=== PATIENT | female | born 1965 | race African-American/Black ===

== ENCOUNTER 2019-05-02 00:15 | Inpatient (IN) | payer OTHER ==
[~2019-05-02] VITALS: Ht 149.9 cm; Wt 60.1 kg
[~2019-05-02 00:15] MED LIST: DICLOFENAC; HCTZ PO; OMEPRAZOLE PO; PLENDIL PO
[2019-05-02] MEDS ORDERED: MORPHINE SULFATE 4 MG/ML CPJ (NOT FOR IM USE) IV STA (01:36)
[2019-05-02] MEDS ORDERED: ONDANSETRON HCL 4MG/2ML INJ IV STA (01:36)
[2019-05-02] MEDS ORDERED: SODIUM CHLORIDE 0.9% 1,000 ML IV ONE (01:36)
[2019-05-02 02:03] LABS: BASOPHILS % 0.8 % (0.0-2.0); EOSINOPHILS % 2.6 % (0.0-5.0); HEMATOCRIT. 35.9 % (36.0-48.0); HEMOGLOBIN. 12.1 g/dL (12.0-16.0); LYMPHOCYTES % 27.8 % (20.0-50.0); MEAN CORPUSCULAR HEMOGLOBIN 28.7 pg (28.0-32.0); MEAN CORPUSCULAR VOLUME 85.4 fL (81.0-99.0); MEAN PLATELET VOLUME 7.4 fl (7.4-10.4); MONOCYTES % 10.1 % (2.0-8.0); NEUTROPHILS % 58.7 % (40.0-76.0); PLATELET 322 x1000/uL (130-400); RED CELL DISTRIBUTION WIDTH 13.9 % (11.6-14.6)
[2019-05-02 02:07] LABS: CHLORIDE 102 mEq/L (98-107)
[2019-05-02] MEDS ORDERED: POTASSIUM CHLORIDE 20MEQ TABLET SR PO SCH (03:35)
[2019-05-02] MEDS ORDERED: NITROGLYCERIN OINT 1GM/INCH UDPKT TD ONE (05:00)
[2019-05-02] MEDS ORDERED: ASPIRIN 81MG TABLET PO ONE (05:00)
[2019-05-02] MEDS ORDERED: MAGNESIUM/ALUMINUM HYDROXIDE/SIMETHICONE 30ML UDC PO PRN (08:45)
[2019-05-02] MEDS ORDERED: DIPHENHYDRAMINE 50MG/ML VIAL IV PRN (08:45)
[2019-05-02] MEDS ORDERED: CLONIDINE 0.1MG TABLET PO PRN (08:45)
[2019-05-02] MEDS ORDERED: ACETAMINOPHEN 325MG TABLET PO PRN (08:45)
[2019-05-02] MEDS ORDERED: DOCUSATE SODIUM 100MG CAPSULE PO PRN (08:45)
[2019-05-02] MEDS ORDERED: IPRATROPIUM/ALBUTEROL 0.5-3(2.5)MG/3ML NEB HHN PRN (08:45)
[2019-05-02] MEDS ORDERED: ONDANSETRON HCL 4MG/2ML INJ IV PRN (08:45)
[2019-05-02 08:59] LABS: PHOSPHORUS 3.4 mg/dL (2.5-4.9)
[2019-05-02 09:00] VITALS: BP 121/69
[2019-05-02] MEDS: HYDROCODONE/ACETAMINOPHEN 5/325MG TABLET PO PRN ×3 (09:41→23:50)
[2019-05-02] MEDS: ENOXAPARIN 40MG/0.4ML SYR SUBCUT SCH (09:43)
[2019-05-02 12:00] VITALS: BP 100/72
[2019-05-02] MEDS ORDERED: HYDR-4009 PO (14:50)
[2019-05-02] MEDS ORDERED: CARI250T PO (14:50)
[2019-05-02] MEDS ORDERED: GABA800T97 PO (14:50)
[2019-05-02 16:00] VITALS: BP 114/64
[2019-05-02] MEDS ORDERED: OMEP10CA5 PO (17:01)
[2019-05-02] MEDS ORDERED: HYDR25TA PO (17:01)
[2019-05-02 18:54] LABS: METHADONE URINE SCREEN NEGATIVE (NEGATIVE); OPIATES URINE SCREEN PRESUMTIVE POSITIVE (NEGATIVE)
[2019-05-02 18:55] LABS: *AMPHETAMINES SCREEN URINE NEGATIVE (NEGATIVE); *BARBITURATES SCREEN URINE NEGATIVE (NEGATIVE); *BENZODIAZEPINES SCREEN URINE NEGATIVE (NEGATIVE); CANNABINOID URINE SCREEN NEGATIVE (NEGATIVE); PHENCYCLIDINE URINE SCREEN NEGATIVE (NEGATIVE)
[2019-05-02 18:57] LABS: *COCAINE SCREEN URINE NEGATIVE (NEGATIVE)
[2019-05-02 20:00] VITALS: BP 116/70
[2019-05-03] VITALS: BP 145/96
[2019-05-03] MEDS: GUAIFENESIN 200MG/10ML SUGAR FREE UDC PO PRN ×2 (00:07→08:32)
[2019-05-03 04:00] VITALS: BP 125/80
[2019-05-03 06:34] LABS: CHLORIDE 110 mEq/L (98-107)
[2019-05-03 06:42] LABS: BASOPHILS % 0.4 % (0.0-2.0); EOSINOPHILS % 3.8 % (0.0-5.0); HEMATOCRIT. 36.7 % (36.0-48.0); HEMOGLOBIN. 12.2 g/dL (12.0-16.0); LYMPHOCYTES % 48.2 % (20.0-50.0); MEAN CORPUSCULAR HEMOGLOBIN 28.8 pg (28.0-32.0); MEAN CORPUSCULAR VOLUME 86.6 fL (81.0-99.0); MONOCYTES % 11.3 % (2.0-8.0); NEUTROPHILS % 36.3 % (40.0-76.0); PLATELET 312 x1000/uL (130-400); RED BLOOD CELL COUNT 4.24 mill/uL (4.2-5.4); RED CELL DISTRIBUTION WIDTH 13.8 % (11.6-14.6)
[2019-05-03 06:45] LABS: LDL CHOLESTEROL 86 mg/dL (5-100)
[2019-05-03 06:47] LABS: HDL CHOLESTEROL 39 mg/dL (40-59)
[2019-05-03] MEDS: HYDROCODONE/ACETAMINOPHEN 5/325MG TABLET PO PRN (07:37)
[2019-05-03 08:00] VITALS: BP 121/60
[2019-05-03] MEDS: ENOXAPARIN 40MG/0.4ML SYR SUBCUT SCH (08:32)
[2019-05-03 12:00] VITALS: BP 121/77
[2019-05-03 12:16] VITALS: BP 121/77
== END 2019-05-03 14:55 | disposition home or self-care (01) | DRG 203 ==
LOC: ER 00:15 → 5WST 05:23 → EDBEDREQTM 05:30 → EDBEDREQ 05:30 → ENRESERV 07:30
PROVIDERS: ADMIT Internal Medicine; ATTEND Internal Medicine
DX: M94.0 Chondrocostal junction syndrome [Tietze] (principal); E87.6 Hypokalemia; I10 Essential (primary) hypertension; Z88.0 Allergy status to penicillin; J44.9 Chronic obstructive pulmonary disease, unspecified; Z82.49 Family history of ischemic heart disease and other diseases of the circulatory system; Z87.01 Personal history of pneumonia (recurrent); Z88.9 Allergy status to unspecified drugs, medicaments and biological substances; Z90.49 Acquired absence of other specified parts of digestive tract; Z98.891 History of uterine scar from previous surgery
CPT/HCPCS: 36415; 71045; 80061; 80305; 83605; 83735; 83880; 84100; 84132; 84443; 84484; 85379; 87804; 93005; 93306; 93970; 94640; 96372; 96374; 96375; 99285; J1650; J2270; J2405; J7030; J7620

== ENCOUNTER 2021-01-16 13:41 | Emergency (ER) | payer OTHER ==
[~2021-01-16] VITALS: Ht 165.1 cm; Wt 70.0 kg
[~2021-01-16 13:41] MED LIST changes: +CARI250T PO; -DICLOFENAC; +GABA800T97 PO; -HCTZ PO; +HYDR-4009 PO; +HYDR25TA PO; +OMEP10CA5 PO; -OMEPRAZOLE PO; -PLENDIL PO
[2021-01-16] MEDS ORDERED: ONDANSETRON HCL 4MG/2ML INJ IV STA (14:24)
[2021-01-16] MEDS ORDERED: FAMOTIDINE 20MG/2ML VIAL IV STA (14:24)
[2021-01-16] MEDS ORDERED: KETOROLAC 30MG/ML VIAL IV STA (14:24)
[2021-01-16] MEDS ORDERED: SODIUM CHLORIDE 0.9% 1,000 ML IV ONE (14:30)
[2021-01-16 14:56] LABS: BASOPHILS % 0.5 % (0.0-2.0); HEMATOCRIT. 34.9 % (36.0-48.0); HEMOGLOBIN. 11.7 g/dL (12.0-16.0); LYMPHOCYTES % 28.6 % (20.0-50.0); MEAN CORPUSCULAR HEMOGLOBIN 26.8 pg (28.0-32.0); MEAN CORPUSCULAR VOLUME 79.7 fL (81.0-99.0); MEAN PLATELET VOLUME 7.3 fl (7.4-10.4); MONOCYTES % 9.7 % (2.0-8.0); NEUTROPHILS % 61.2 % (40.0-76.0); PLATELET 382 x1000/uL (130-400); RED BLOOD CELL COUNT 4.38 mill/uL (4.2-5.4); RED CELL DISTRIBUTION WIDTH 16.1 % (11.6-14.6)
[2021-01-16 15:03] LABS: CHLORIDE 103 mEq/L (98-107)
[2021-01-16 15:09] LABS: PROTHROMBIN TIME 11.2 sec (9.6-11.0)
[2021-01-16 15:10] LABS: ETHANOL BLOOD < 10 mg/dL
[2021-01-16 15:17] LABS: CLARITY URINE CLEAR (CLEAR); COLOR URINE YELLOW (YELLOW); KETONES URINE 2+ (NEGATIVE); LEUKOCYTE ESTERASE URINE NEGATIVE (NEGATIVE); NITRITE URINE NEGATIVE (NEGATIVE); OCCULT BLOOD URINE NEGATIVE (NEGATIVE); PROTEIN URINE TRACE (NEGATIVE); SPECIFIC GRAVITY URINE 1.017 (1.005-1.030)
[2021-01-16 15:25] LABS: *AMPHETAMINES SCREEN URINE NEGATIVE (NEGATIVE); *BARBITURATES SCREEN URINE NEGATIVE (NEGATIVE); *BENZODIAZEPINES SCREEN URINE NEGATIVE (NEGATIVE); *COCAINE SCREEN URINE NEGATIVE (NEGATIVE); METHADONE URINE SCREEN NEGATIVE (NEGATIVE); OPIATES URINE SCREEN PRESUMTIVE POSITIVE (NEGATIVE)
[2021-01-16 15:26] LABS: CANNABINOID URINE SCREEN NEGATIVE (NEGATIVE); PHENCYCLIDINE URINE SCREEN NEGATIVE (NEGATIVE)
[2021-01-16] MEDS ORDERED: POTASSIUM BICARB/CIT ACID 25 MEQ TABLET.EFF PO ONE (16:15)
[2021-01-16] MEDS ORDERED: MORPHINE SULFATE 2 MG/ML CPJ (NOT FOR IM USE) IV ONE (17:00)
[2021-01-16] MEDS ORDERED: SULF1TAB48 MT (18:59)
[2021-01-16] MEDS ORDERED: TRAM50TA3 MT (18:59)
[2021-01-16 19:14] VITALS: BP 133/57
== END 2021-01-16 19:16 | disposition home or self-care (01) ==
LOC: ER 13:41
DX: R10.84 Generalized abdominal pain (principal); G89.29 Other chronic pain; N39.0 Urinary tract infection, site not specified; I10 Essential (primary) hypertension; J44.9 Chronic obstructive pulmonary disease, unspecified; Z87.11 Personal history of peptic ulcer disease; Z90.49 Acquired absence of other specified parts of digestive tract; Z88.0 Allergy status to penicillin
CPT/HCPCS: 36415; 74176; 80053; 80305; 80320; 81003; 83690; 85025; 85610; 96374; 96375; 99284; J1885; J2270; J2405; J3490; J7030; G0480

== ENCOUNTER 2021-01-18 22:07 | Emergency (ER) | payer OTHER ==
[~2021-01-18] VITALS: Ht 144.8 cm; Wt 56.7 kg
[~2021-01-18 22:07] MED LIST changes: +SULF1TAB48 MT; +TRAM50TA3 MT
[2021-01-18 22:48] VITALS: BP 138/84
[2021-01-18] MEDS ORDERED: TRAM50TA3 PO (23:47)
[2021-01-18] MEDS ORDERED: ONDA4TAB5 PO (23:47)
== END 2021-01-19 00:08 | disposition home or self-care (01) ==
LOC: ER 22:07
DX: R10.30 Lower abdominal pain, unspecified (principal); J44.9 Chronic obstructive pulmonary disease, unspecified; I10 Essential (primary) hypertension; Z87.440 Personal history of urinary (tract) infections; Z79.899 Other long term (current) drug therapy; Z88.0 Allergy status to penicillin
CPT/HCPCS: 99283

== ENCOUNTER 2022-01-30 07:17 | Emergency (ER) | payer OTHER ==
[~2022-01-30] VITALS: Ht 157.5 cm; Wt 69.0 kg
[~2022-01-30 07:17] MED LIST changes: +ONDA4TAB5 PO; +TRAM50TA3 PO
[2022-01-30] MEDS ORDERED: ONDANSETRON HCL 4MG/2ML INJ IV STA ×2 (08:08→10:02)
[2022-01-30] MEDS ORDERED: KETOROLAC 30MG/ML VIAL IV STA ×2 (08:08→10:02)
[2022-01-30] MEDS ORDERED: SODIUM CHLORIDE 0.9% 1,000 ML IV ONE ×2 (08:15→10:15)
[2022-01-30 08:28] LABS: BASOPHILS % 1.7 % (0.0-2.0); EOSINOPHILS % 0.1 % (0.0-5.0); HEMATOCRIT. 24.2 % (36.0-48.0); HEMOGLOBIN. 7.3 g/dL (12.0-16.0); LYMPHOCYTES % 13.5 % (20.0-50.0); MEAN CORPUSCULAR HEMOGLOBIN 18.4 pg (28.0-32.0); MEAN CORPUSCULAR VOLUME 60.7 fL (81.0-99.0); MEAN PLATELET VOLUME 8.5 fl (7.4-10.4); MONOCYTES % 2.6 % (2.0-8.0); NEUTROPHILS % 82.1 % (40.0-76.0); PLATELET 530 x1000/uL (130-400); RED BLOOD CELL COUNT 3.99 mill/uL (4.2-5.4)
[2022-01-30 09:15] LABS: CHLORIDE 105 mEq/L (98-107); ETHANOL BLOOD < 10 mg/dL
[2022-01-30] MEDS ORDERED: POTASSIUM CHLORIDE 20MEQ TABLET SR PO ONE (09:45)
[2022-01-30 09:48] LABS: CLARITY URINE CLEAR (CLEAR); COLOR URINE YELLOW (YELLOW); KETONES URINE NEGATIVE (NEGATIVE); LEUKOCYTE ESTERASE URINE NEGATIVE (NEGATIVE); NITRITE URINE NEGATIVE (NEGATIVE); OCCULT BLOOD URINE NEGATIVE (NEGATIVE); PH URINE >=9.0 (4.5-8.0); PROTEIN URINE 1+ (NEGATIVE); UROBILINOGEN URINE 0.2 E.U./dL (0.2-1.0)
[2022-01-30 10:02] LABS: *AMPHETAMINES SCREEN URINE NEGATIVE (NEGATIVE); *BARBITURATES SCREEN URINE NEGATIVE (NEGATIVE); *BENZODIAZEPINES SCREEN URINE NEGATIVE (NEGATIVE); *COCAINE SCREEN URINE NEGATIVE (NEGATIVE); CANNABINOID URINE SCREEN NEGATIVE (NEGATIVE); METHADONE URINE SCREEN NEGATIVE (NEGATIVE); OPIATES URINE SCREEN PRESUMTIVE POSITIVE (NEGATIVE); PHENCYCLIDINE URINE SCREEN NEGATIVE (NEGATIVE)
[2022-01-30 10:47] LABS: HEMATOCRIT 23.6 % (36.0-48.0)
[2022-01-30 11:06] LABS: HEMOGLOBIN 6.9 g/dL (12.0-16.0)
[2022-01-30 11:15] LABS: PLATELET ESTIMATE INCREASED
[2022-01-30] MEDS ORDERED: KETOROLAC 30MG/ML VIAL IV NR (12:45)
[2022-01-30] MEDS ORDERED: MORPHINE SULFATE 4 MG/ML CPJ (NOT FOR IM USE) IV ONE (17:00)
[2022-01-30] MEDS ORDERED: MORPHINE SULFATE 2 MG/ML CPJ (NOT FOR IM USE) IV ONE (20:00)
[2022-01-30 22:18] VITALS: BP 131/79
== END 2022-01-30 22:41 | disposition short-term general hospital (02) ==
LOC: ER 07:46
DX: R10.33 Periumbilical pain (principal); D50.9 Iron deficiency anemia, unspecified; E87.6 Hypokalemia; J44.9 Chronic obstructive pulmonary disease, unspecified; I10 Essential (primary) hypertension; Z87.440 Personal history of urinary (tract) infections; Z79.899 Other long term (current) drug therapy
CPT/HCPCS: 36415; 74176; 80053; 80305; 80320; 81003; 83690; 85014; 85018; 85025; 86850; 86900; 86901; 86920; 96361; 96374; 96375; 96376; 99285; J1885; J2270; J2405; J7030; P9016; G0480

== ENCOUNTER 2022-07-04 16:29 | Inpatient (IN) | payer OTHER ==
[~2022-07-04] VITALS: Ht 167.6 cm; Wt 63.2 kg
[2022-07-05] VITALS (7 sets, daily range): BP systolic 118–140; BP diastolic 70–90
[2022-07-05] MEDS ORDERED: PREDNISONE 20MG TABLET PO STA (00:17)
[2022-07-05] MEDS ORDERED: ALBUTEROL (0.083%) 2.5MG/3ML NEB HHN STA (00:17)
[2022-07-05] MEDS ORDERED: IPRATROPIUM BROMIDE (0.02%) 0.5MG/2.5ML NEB HHN STA (00:17)
[2022-07-05 00:43] LABS: CHLORIDE 104 mEq/L (98-107)
[2022-07-05 00:46] LABS: BASOPHILS % 0.7 % (0.0-2.0); EOSINOPHILS % 2.4 % (0.0-5.0); HEMATOCRIT. 31.3 % (36.0-48.0); LYMPHOCYTES % 38.5 % (20.0-50.0); MEAN CORPUSCULAR HEMOGLOBIN 24.5 pg (28.0-32.0); MEAN CORPUSCULAR VOLUME 76.9 fL (81.0-99.0); MONOCYTES % 8.4 % (2.0-8.0); PLATELET 373 x1000/uL (130-400); RED BLOOD CELL COUNT 4.07 mill/uL (4.2-5.4); RED CELL DISTRIBUTION WIDTH 19.1 % (11.6-14.6)
[2022-07-05] MEDS ORDERED: METHYLPREDNISOLONE SOD SUCC 125 MG/2 ML VIAL IV STA (01:05)
[2022-07-05] MEDS ORDERED: MAGNESIUM 2 G PREMIX 50 ML IV STA (01:05)
[2022-07-05] MEDS ORDERED: AZITHROMYCIN 500MG/250ML 250 ML IV ONE (01:15)
[2022-07-05 02:29] LABS: BG BASE EXCESS 1.2 mmol/L (-2.0-2.0); BG CARBOXYHEMOGLOBIN 1.3 % (0.5-1.5); BG DEOXYHEMOGLOBIN 0.6 % (0.0-5.0); BG FRACTION INSPIRED OXYGEN 100; BG HCO3 ACT 27.5 mmol/L (22.0-26.0); BG METHEMOGLOBIN 0.3 % (0.0-1.5); BG OXYGEN SATURATION 99.4 % (92.0-98.5); BG OXYHEMOGLOBIN 97.8 % (94.0-97.0); BG PCO2 51.9 mmHg (35.0-45.0); BG PH 7.342 (7.350-7.450); BG PO2 487.3 mmHg (75.0-100.0); BG SAMPLE SITE RIGHT BRACHIAL; BG TOTAL HEMOGLOBIN 10.4 g/dL (12.0-18.0); BG VENT MODE MASK - BIPAP
[2022-07-05] MEDS ORDERED: LORAZEPAM 2MG/ML CPJ IV ONE (02:30)
[2022-07-05] MEDS ORDERED: ONDANSETRON HCL 4MG/2ML INJ IV PRN (09:45)
[2022-07-05] MEDS ORDERED: IPRATROPIUM/ALBUTEROL 0.5-3(2.5)MG/3ML NEB HHN PRN (09:45)
[2022-07-05] MEDS ORDERED: DIPHENHYDRAMINE 50MG/ML VIAL IV PRN (09:45)
[2022-07-05] MEDS ORDERED: CLONIDINE 0.1MG TABLET PO PRN (09:45)
[2022-07-05] MEDS: METHYLPREDNISOLONE SOD SUCC 125 MG/2 ML VIAL IV SCH ×3 (10:18→22:57)
[2022-07-05] MEDS: ACETAMINOPHEN 325MG TABLET PO PRN ×2 (10:19→15:11)
[2022-07-05] MEDS ORDERED: GUAIFENESIN-DM 200MG-20MG/10ML UDC PO PRN (10:45)
[2022-07-05] MEDS ORDERED: NALOXONE HCL 0.4MG/ML VIAL IV PRN (10:45)
[2022-07-05] MEDS: MORPHINE SULFATE 2 MG/ML CPJ (NOT FOR IM USE) IV PRN ×3 (11:12→20:46)
[2022-07-05] MEDS ORDERED: MAGNESIUM/ALUMINUM HYDROXIDE/SIMETHICONE 30ML UDC PO ONE (11:15)
[2022-07-05] MEDS ORDERED: IPRATROPIUM/ALBUTEROL 0.5-3(2.5)MG/3ML NEB HHN SCH (12:00)
[2022-07-05] MEDS: HYDROCODONE/ACETAMINOPHEN 5/325MG TABLET PO PRN ×2 (13:26→17:46)
[2022-07-06] VITALS: BP 136/86
[2022-07-06] MEDS: HYDROCODONE/ACETAMINOPHEN 5/325MG TABLET PO PRN (01:00)
[2022-07-06 02:00] VITALS: BP 118/71
[2022-07-06] MEDS: MORPHINE SULFATE 2 MG/ML CPJ (NOT FOR IM USE) IV PRN ×3 (02:08→12:03)
[2022-07-06 04:00] VITALS: BP 122/78
[2022-07-06 05:42] VITALS: BP 150/109
[2022-07-06] MEDS: METHYLPREDNISOLONE SOD SUCC 125 MG/2 ML VIAL IV SCH ×2 (06:02→08:56)
[2022-07-06 06:46] LABS: BASOPHILS % 0.2 % (0.0-2.0); HEMATOCRIT. 32.4 % (36.0-48.0); HEMOGLOBIN. 10.4 g/dL (12.0-16.0); LYMPHOCYTES % 7.2 % (20.0-50.0); MEAN CORPUSCULAR HEMOGLOBIN 24.5 pg (28.0-32.0); MEAN CORPUSCULAR VOLUME 76.4 fL (81.0-99.0); MEAN PLATELET VOLUME 7.6 fl (7.4-10.4); NEUTROPHILS % 89.6 % (40.0-76.0); PLATELET 387 x1000/uL (130-400); RED BLOOD CELL COUNT 4.24 mill/uL (4.2-5.4)
[2022-07-06 10:09] LABS: CHLORIDE 109 mEq/L (98-107)
[2022-07-06 12:03] VITALS: BP 120/60
== END 2022-07-06 12:55 | disposition left against medical advice (07) | DRG 140 ==
LOC: ER 16:29 → ENRESERV 07-05 12:13 → 5EST 07-05 13:16
PROVIDERS: ADMIT Internal Medicine; ATTEND Internal Medicine
PROC: 5A09357 Assistance with Respiratory Ventilation, Less than 24 Consecutive Hours, Continuous Positive Airway Pressure (ICD-10-PCS; principal; 2022-07-05)
DX: J44.1 Chronic obstructive pulmonary disease with (acute) exacerbation (principal); J96.00 Acute respiratory failure, unspecified whether with hypoxia or hypercapnia; J20.9 Acute bronchitis, unspecified; I48.0 Paroxysmal atrial fibrillation; M81.0 Age-related osteoporosis without current pathological fracture; G89.29 Other chronic pain; I10 Essential (primary) hypertension; Z20.822 Contact with and (suspected) exposure to COVID-19; K21.9 Gastro-esophageal reflux disease without esophagitis; E87.29 Other acidosis; J44.0 Chronic obstructive pulmonary disease with (acute) lower respiratory infection; F17.210 Nicotine dependence, cigarettes, uncomplicated; Z53.29 Procedure and treatment not carried out because of patient's decision for other reasons; Z88.0 Allergy status to penicillin; Z79.899 Other long term (current) drug therapy; Z90.49 Acquired absence of other specified parts of digestive tract
CPT/HCPCS: 36415; 36600; 71045; 74176; 80053; 82375; 82805; 83880; 84484; 85025; 85379; 87426; 87804; 93005; 93970; 99291; J0456; J1200; J2060; J2270; J2930; J3475; J7512